=== PATIENT | female | born 1975 | race Two or more races ===

== ENCOUNTER 2020-12-01 21:26 | Emergency (ER) | payer BC, MEDICAID ==
[~2020-12-01] VITALS: Ht 157.5 cm; Wt 75.7 kg
--- NOTE | 2020-12-01 21:43 | Emergency Room Report ---
History of Present Illness General Chief Complaint: Lower Extremity Injury Present Illness HPI Patient is a 45-year-old female who presents after fall from standing. Patient reports of increased pain to the right ankle and foot primarily. Additionally reports having some pain to the left knee as well as to the left wrist. Reports having fallen forward this afternoon. Increased pain with ambulation. Denies any head injury. Denies any neck pain. Denies any loss of consciousness. Allergies: Coded Allergies: No Known Allergies (Verified Allergy, Unknown, 05/24/10) COVID-19 Screening COVID-19 risk:Contact w/high r: No Has patient experienced gupta: No COVID-19 Testing performed [employer]: No Patient History Past Medical History: none Now: No Reviewed Nursing Documentation: PMH: Agreed; PSxH: Agreed Review of Systems All Other Systems: negative except mentioned in HPI Physical Exam Vital Signs Date Time Temp Pulse Resp B/P (MAP) Pulse Ox O2 Delivery O2 Flow Rate FiO2 12/01/20 21:31 98.6 87 18 160/90 (113) 100 Room Air Sp02 EP Interpretation: reviewed, normal General Appearance: normal inspection, alert, no apparent distress, GCS 15 Head: normocephalic, atraumatic Eyes: normal eye exam, PERRL, EOMI, lids + conjunctiva normal, no hyphema, no racoon eyes ENT: normal ENT inspection, TMs + canals normal, oropharynx normal, no crowley signs Neck: trach midline, no bony tend, full range of motion without pain Respiratory: effort normal, no retractions, clear to auscultation, chest symmetrical, palpation of chest normal, speaking in full sentences Cardiovascular: regular rate, rhythm, no JVD Cardiovascular #2: 2+ radial (R), 2+ radial (L), 2+ dorsalis pedis (R), 2+ dorsalis pedis (L) Gastrointestinal: normal inspection, non-tender, non-distended, no rebound/guarding, normal bowel sounds Genitourinary: normal inspection Musculoskeletal: back normal Skin: no rash, no lacerations, normal palpation, other - Abrasion to the left knee, no patellar tenderness, swelling to the left hand area no lacerations, right foot swelling anterior to the anterior talofibular ligament Lymphatic: normal inspection Neurologic: normal inspection, CN II-XII intact, oriented x3, sensory intact, motor strength/tone normal, normal speech Psychiatric: normal inspection, memory normal, mood normal, no suicidal/homicidal ideation Medical Decision Making Diagnostic Impression: Primary Impression: Ankle sprain Additional Impression: Hand contusion ER Course Patient presented for fall. Differential diagnosis include was not limited to fracture, contusion, sprain among others. X-ray imaging was ordered due to patient's recent trauma. Patient's x-ray imaging showed no evidence of acute fracture. Patient was placed in an Jose De Jesus wrap and given crutches. She advised to follow-up with her primary care physician for recheck. She advised to keep leg elevated and to continue to ice areas of discomfort. The patient is advised to follow up with primary care doctor in 2-3 days. Patient is advised to return if any worsening condition or if any changes in status that are concerning. This report is dictated with [employer] software which may occasionally lead to discrepancies related to use of this software. Last Vital Signs Date Time Temp Pulse Resp B/P (MAP) Pulse Ox O2 Delivery O2 Flow Rate FiO2 12/01/20 21:31 98.6 87 18 160/90 (113) 100 Room Air Status: improved Disposition: HOME, SELF-CARE Condition: Stable Scripts Famotidine* (Pepcid 20mg tablet*) 20 Mg Tablet 20 MG ORAL DAILY for Gerd, #30 TAB 0 Refills Prov: Danial Ruiz MD 12/01/20 Ibuprofen* (MOTRIN*) 600 Mg Tablet 600 MG ORAL Q8H PRN for FOR PAIN, #30 TAB 0 Refills Prov: Danial Ruiz MD 12/01/20 Danial Ruiz MD Dec 01, 2020 21:43
[2020-12-01] MEDS ORDERED: IBUPROFEN600 M1 ORAL (22:04)
[2020-12-01] MEDS ORDERED: FAMOTIDINE20 MG ORAL (22:04)
--- NOTE | 2020-12-01 22:20 | NUR ---
Pt demonstrated proper gait techniques after this RN educated patient. Pt verbalizes understanding and confirms she will take her medications to decrease her pain and use her crutches to prevent exacerbation of pain. Pt has oz wrap bandages on her left wrist and right ankle. Pt is discharged with crutches. VSS, respirations even and unlabored, skin signs, otherwise, normal, no SS of respiratory distress, OK to discharge per ED MD.
[2020-12-01 22:32] VITALS: BP 130/85
--- NOTE | 2020-12-02 12:11 | Diagnostic Imaging Report ---
Indication: Right ankle pain status post injury Technique: 3 views of the right ankle Comparison: None Findings: Bone mineralization is within normal limits. No acute fractures identified. Ankle mortise is intact on these nonstress views. No ankle effusion. No radiopaque foreign body. Impression: No acute fracture or dislocation.
--- NOTE | 2020-12-02 12:11 | Diagnostic Imaging Report ---
Indication: Foot pain status post injury Technique: 3 views of the right foot Comparison: None Findings: Bony mineralization within normal limits. No acute fracture is identified. Lisfranc alignment is maintained. No evidence of dislocation. No radiopaque foreign body. Impression: No acute fracture or dislocation.
--- NOTE | 2020-12-02 12:12 | Diagnostic Imaging Report ---
Indication: Left knee pain status post injury Technique: 3 views of the left knee Comparison: None Findings: Bony mineralization is within normal limits. No acute fracture or dislocation is identified. No suprapatellar joint effusion. No radiopaque foreign body. Impression: No acute fracture or dislocation.
--- NOTE | 2020-12-02 12:14 | Diagnostic Imaging Report ---
Indication: Wrist pain status post injury Technique: 3 views of the left wrist Comparison: None FINDINGS/IMPRESSION: Bony mineralization within normal limits. There is a small ossific density projecting in the interspace between the distal radius and scaphoid seen only on the frontal view. This may represent age-indeterminate small avulsion fracture. Correlate for point tenderness in this region. Otherwise, no acute fractures seen. No significant soft tissue swelling appreciated. No radiopaque foreign body.
== END 2020-12-01 22:50 | disposition home or self-care (01) ==
LOC: EMR 21:57
DX: S93.401A Sprain of unspecified ligament of right ankle, initial encounter (principal); S60.222A Contusion of left hand, initial encounter; W19.XXXA Unspecified fall, initial encounter; Y92.9 Unspecified place or not applicable; M25.562 Pain in left knee
CPT/HCPCS: 99284